=== PATIENT | male | born 1980 | race Caucasian/White ===

== ENCOUNTER 2018-04-09 13:51 | Emergency (ER) | payer SELFPAY ==
[~2018-04-09] VITALS: Ht 193 cm; Wt 104.3 kg
--- NOTE | 2018-04-09 14:25 | NUR ---
PT IS IN ROOM #1B. DR AGUAYO EVALUATED THE PT.
[2018-04-09] MEDS ORDERED: HYDROMORPHONE 2 MG/1 ML DISP.SYRIN ONE (14:41)
[2018-04-09] MEDS ORDERED: ONDANSETRON 4 MG/2 ML VIAL ONE (14:42)
[2018-04-09] MEDS ORDERED: HYDROMORPHONE 1 MG/1 ML DISP.SYRIN IM ONE (14:45)
[2018-04-09] MEDS ORDERED: ONDANSETRON 4 MG/2 ML VIAL IM ONE (14:45)
--- NOTE | 2018-04-09 15:34 | NUR ---
PT WAS D/C TO HOME. D/C INSTRUCTONS GIVEN TO THE PT.
[2018-04-09 15:35] VITALS: BP 139/88
== END 2018-04-09 15:39 | disposition home or self-care (01) ==
LOC: ER 13:51
DX: R51 Headache (principal)
CPT/HCPCS: A4663; J1170; J2405